=== PATIENT | female | born 1985 | race Caucasian/White ===

== ENCOUNTER 2017-01-26 08:02 | Emergency (ER) | payer MEDICAID, OTHER ==
[2017-01-26] MEDS ORDERED: OXYCODONE-ACETAMINOPHEN 5-325 MG TABLET PO ONE (09:40)
[2017-01-26] MEDS ORDERED: CEPHALEXIN 500 MG CAPSULE PO ONE (09:40)
[2017-01-26] MEDS ORDERED: SULFAMETHOXAZOLE/TRIMETHOPRIM 800-160 MG TABLET PO ONE (10:55)
--- NOTE | 2017-01-26 10:56 | ER Document Report ---
ED Skin Rash/Insect Bite/Abscs - General Chief Complaint: Abscess Stated Complaint: ARM PAIN Time Seen by Provider: 01/26/17 09:17 Notes: Patient reports a cyst under L arm x 4 days. Pain, swelling redness. History of MRSA. Last abx 2 months ago for same. denies past medical history otherwise TRAVEL OUTSIDE OF THE [place] IN LAST 30 DAYS: No - Related Data Allergies/Adverse Reactions: No Known Allergies Allergy (Verified 05/20/16 04:14) Past Medical History - Social History Smoking Status: Current Every Day Smoker Chew tobacco use (# tins/day): No Frequency of alcohol use: None Drug Abuse: None Family History: Other - denies family hx of breast cancer Patient has suicidal ideation: No Patient has homicidal ideation: No - Past Medical History Cardiac Medical History: Denies: Hx Heart Attack, Hx Hypertension Pulmonary Medical History: Denies: Hx Asthma, Hx Bronchitis, Hx COPD, Hx Pneumonia, Hx Tuberculosis Neurological Medical History: Denies: Hx Seizures Renal/ Medical History: Denies: Hx Peritoneal Dialysis Musculoskeltal Medical History: Denies Hx Arthritis Past Surgical History: Reports: Hx Appendectomy, Hx Herniorrhaphy - Ventral hernia repair., Hx Orthopedic Surgery - L acl w hardware, Hx Tonsillectomy, Hx Tubal Ligation - Immunizations Immunizations up to date: No Hx Diphtheria, Pertussis, Tetanus Vaccination: Yes Review of Systems - Review of Systems Constitutional: No symptoms reported EENT: No symptoms reported Cardiovascular: No symptoms reported Respiratory: No symptoms reported Gastrointestinal: No symptoms reported Skin: See HPI -: Yes All other systems reviewed and negative Physical Exam - Vital signs Vitals: Temp Pulse Resp BP Pulse Ox 97.6 F 82 16 113/78 98 01/26/17 08:06 01/26/17 08:06 01/26/17 08:06 01/26/17 08:06 01/26/17 08:06 - Notes Notes: PHYSICAL EXAM GENERAL: Alert, interacts well. EXTREMITIES: Moves all 4 extremities spontaneously. No edema, radial and dorsalis pedis pulses 2/4 bilaterally. No cyanosis. NEUROLOGICAL: Alert and oriented x4. Normal speech. PSYCH: Normal affect, normal mood. SKIN: Warm, dry, normal turgor. No rashes or lesions noted. - Skin Skin Temperature: Warm Skin Moisture: Dry Skin Color: Normal Skin Turgor: Elastic Skin irregularity: Abscess Location of irregularity: Extremities - left axilla Irregularity with: Swelling, Tenderness, Warmth, Induration Course - Re-evaluation Re-evalutation: 01/26/17 18:20 Patient is hemodynamically stable, no acute distress afebrile. I&D performed at the bedside for 5 cc of purulent material. Patient sent home on Bactrim to cover for MRSA. Discussed strict return precautions - Vital Signs Vital signs: Temp Pulse Resp BP Pulse Ox 98.3 F 66 20 134/88 H 99 01/26/17 11:17 01/26/17 11:17 01/26/17 11:17 01/26/17 11:17 01/26/17 11:17 Procedures - Incision and Drainage Left Arm Type: Simple Anesthetic type: 1% Lidocaine mL's of anesthetic: 3 Blade size: 11 I&D procedure: Betadine prep applied, Sterile dressing applied Incision Method: Incision made with needle Amount/type of drainage: 5 purulent material Adult Front & Back picture: 1 - abscess Discharge - Discharge Clinical Impression: Abscess Blepharitis Qualifiers: Blepharitis type: unspecified type Laterality: right Eyelid: upper Qualified Code(s): H01.001 - Unspecified blepharitis right upper eyelid Condition: Good Disposition: HOME, SELF-CARE Instructions: Abscess ([facility]), MRSA Cellulitis ([facility]), Post Incision and Drainage , Trimethoprim-Sulfa ([facility]), Oral Narcotic Medication ([facility]) Additional Instructions: Use warm compresses for your eye to decrease the swelling Prescriptions: Oxycodone HCl/Acetaminophen [Percocet 5-325 mg Tablet] 1 - 2 tab PO ASDIR PRN # 15 tablet PRN Reason: Sulfamethoxazole/Trimethoprim [Bactrim Ds Tablet] 1 each PO BID 10 Days Forms: Parent Work Note Referrals: LENARD STRONG PA-C [Primary Care Provider] - Follow up in 3-5 days
[2017-01-26 11:27] VITALS: BP 134/88
== END 2017-01-26 11:27 | disposition home or self-care (01) ==
LOC: ER 08:02
PROC: 0H9CXZZ Drainage of Left Upper Arm Skin, External Approach (ICD-10-PCS; principal; 2017-01-26)
DX: L02.412 Cutaneous abscess of left axilla (principal); H01.001 Unspecified blepharitis right upper eyelid; F17.200 Nicotine dependence, unspecified, uncomplicated; Z86.14 Personal history of Methicillin resistant Staphylococcus aureus infection
CPT/HCPCS: 99283; 87070; 87205; 87077; 87186; 10060; J3490

== ENCOUNTER 2017-03-15 15:50 | Emergency (ER) | payer MEDICAID ==
--- NOTE | 2017-03-15 17:30 | ER Document Report ---
HPI - HPI Patient complains to provider of: Right chin abscess Onset: Other - 2 Days Onset/Duration: Gradual Quality of pain: Throbbing Pain Level: 3 Context: 31-year-old female with a history of MRSA culture positive, has a new crusted abscess right chin. Her primary care provider recently had her treat her nose with Bactroban and she still got another one. no Fever. Associated Symptoms: None Exacerbated by: Other - Touching it Relieved by: Denies Similar symptoms previously: Yes Recently seen / treated by doctor: No - ROS ROS below otherwise negative: Yes Systems Reviewed and Negative: Yes All other systems reviewed and negative - REPRODUCTIVE Reproductive: DENIES: : - DERM Skin Color: Normal Past Medical History - General Information source: Patient - Social History Smoking Status: Current Every Day Smoker Frequency of alcohol use: None Drug Abuse: None Lives with: Family Family History: Other - denies family hx of breast cancer Patient has suicidal ideation: No Patient has homicidal ideation: No Renal/ Medical History: Denies: Hx Peritoneal Dialysis Past Surgical History: Reports: Hx Appendectomy, Hx Herniorrhaphy - Ventral hernia repair., Hx Orthopedic Surgery - L acl w hardware, Hx Tonsillectomy, Hx Tubal Ligation - Immunizations Immunizations up to date: No Hx Diphtheria, Pertussis, Tetanus Vaccination: Yes Vertical Provider Document - CONSTITUTIONAL Agree With Documented VS: Yes Exam Limitations: No Limitations General Appearance: No Apparent Distress - INFECTION CONTROL TRAVEL OUTSIDE OF THE [place] IN LAST 30 DAYS: No - HEENT HEENT: Normocephalic Notes: crusted abscess with surrounding swelling in the soft tissue right chin. No gingival swelling or dental decay. - NECK Neck: Supple. negative: Lymphadenopathy-Left, Lymphadenopathy-Right - RESPIRATORY O2 Sat by Pulse Oximetry: 100 - NEURO Level of Consciousness: Awake, Alert, Appropriate - DERM Integumentary: Warm, Dry, Abscess - See above Course - Vital Signs Vital signs: Temp Pulse Resp BP Pulse Ox 98.2 F 86 17 146/101 H 100 03/15/17 15:56 03/15/17 15:56 03/15/17 15:56 03/15/17 15:56 03/15/17 15:56 Procedures - Incision and Drainage Right Face Time completed: 18:45 Type: Simple Anesthetic type: 1% Lidocaine mL's of anesthetic: 1 Blade size: 11 I&D procedure: Betadine prep applied Incision Method: Incision made by scalpel - 2mm, Amount/type of drainage: large pus Notes: 03/15/17 22:46 NS irrigation, small piece of idoform gauze packing, bandaid Discharge - Discharge Clinical Impression: Elevated blood pressure reading, I & D right chin abscess Condition: Good Disposition: HOME, SELF-CARE Instructions: Abscess ([facility]), Clindamycin ([facility]), Post Incision and Drainage, High Blood Pressure ([facility]) Additional Instructions: warm compress to your provider for recheck to er if worse use the bactroban ointment on small lesions before they turn into abscess Please complete the patient satisfaction survey if you get one, and return it.. If you do not receive a survey, then you can go to the [facility] website, [email or web address] and place your comments about your very good care. Thank you very much. It was a pleasure being your medical provider today. Prescriptions: Ibuprofen [Motrin 600 mg Tablet] 600 mg PO Q8HP PRN #30 tablet PRN Reason: Clindamycin HCl [Cleocin 150 mg Capsule] 300 mg PO TID #42 capsule Referrals: LENARD STRONG PA-C [Primary Care Provider] - Follow up in 3-5 days (To recheck blood pressure)
[2017-03-15] MEDS ORDERED: CLINDAMYCIN HCL 150 MG CAPSULE PO ONE (17:48)
[2017-03-15] MEDS ORDERED: IBUPROFEN 800 MG TABLET PO ONE (17:49)
[2017-03-15] MEDS ORDERED: LIDOCAINE 4%/TETRACAINE 0.5%/EPI 0.18% 5 ML TOPICAL SOLN TOP ONE (17:50)
[2017-03-15 19:14] VITALS: BP 136/88
== END 2017-03-15 19:14 | disposition home or self-care (01) ==
LOC: ER 15:50
PROC: 0H91XZZ Drainage of Face Skin, External Approach (ICD-10-PCS; principal; 2017-03-15)
DX: L02.01 Cutaneous abscess of face (principal); Z86.14 Personal history of Methicillin resistant Staphylococcus aureus infection; R03.0 Elevated blood-pressure reading, without diagnosis of hypertension; F17.200 Nicotine dependence, unspecified, uncomplicated
CPT/HCPCS: 99283; 10060; J3490 ×3; A6266

== ENCOUNTER 2017-07-18 09:52 | Emergency (ER) | payer MEDICAID ==
--- NOTE | 2017-07-18 10:37 | ER Document Report ---
HPI - HPI Patient complains to provider of: right shoulder tender and sore Pain Level: 4 Context: Patient is a 31 year old female who presents to the emergency department complaining of right shoulder tenderness and swollen area for about 2 days. Patient states she has a history of abscesses and she thinks this is one. She denies any known scratches, bug bites. Otherwise denies any fevers or chills. States it is not started draining yet. Denies any allergies to medication Primary care is Bonnie strong - REPRODUCTIVE Reproductive: DENIES: : Past Medical History - Social History Smoking Status: Current Every Day Smoker Chew tobacco use (# tins/day): No Frequency of alcohol use: None Drug Abuse: None Family History: Other - denies family hx of breast cancer Patient has suicidal ideation: No Patient has homicidal ideation: No - Past Medical History Cardiac Medical History: Denies: Hx Heart Attack, Hx Hypertension Pulmonary Medical History: Denies: Hx Asthma, Hx Bronchitis, Hx COPD, Hx Pneumonia, Hx Tuberculosis Neurological Medical History: Denies: Hx Seizures Renal/ Medical History: Denies: Hx Peritoneal Dialysis Musculoskeltal Medical History: Denies Hx Arthritis Past Surgical History: Reports: Hx Appendectomy, Hx Herniorrhaphy - Ventral hernia repair., Hx Orthopedic Surgery - L acl w hardware, Hx Tonsillectomy, Hx Tubal Ligation - Immunizations Immunizations up to date: No Hx Diphtheria, Pertussis, Tetanus Vaccination: Yes Vertical Provider Document - CONSTITUTIONAL Notes: PHYSICAL EXAM GENERAL: Alert, interacts well. LUNGS: Clear to auscultation bilaterally, no wheezes, rales, or rhonchi. No respiratory distress. HEART: Regular rate and rhythm. No murmurs, gallops, or rubs. EXTREMITIES: Moves all 4 extremities spontaneously. No edema, radial and dorsalis pedis pulses 2/4 bilaterally. No cyanosis. NEUROLOGICAL: Alert and oriented x4. Normal speech. PSYCH: Normal affect, normal mood. SKIN: Warm, dry, normal turgor. Tender indurated area in the right shoulder blade with approximately 1 cm of fluctuance in 3 cm of surrounding erythema and induration. - INFECTION CONTROL TRAVEL OUTSIDE OF THE [place] IN LAST 30 DAYS: No - RESPIRATORY O2 Sat by Pulse Oximetry: 99 Course - Re-evaluation Re-evalutation: 07/18/17 11:17 Patient is 31-year-old female is hemodynamically stable, no acute distress afebrile. Presentation is consistent with an abscess. I&D performed at the bedside. Patient initiated on antibiotics and sent home with minimal pain control and can follow-up with primary care. Patient agrees with plan. - Vital Signs Vital signs: Temp Pulse Resp BP Pulse Ox 98.5 F 68 14 116/85 99 07/18/17 09:56 07/18/17 09:56 07/18/17 09:56 07/18/17 09:56 07/18/17 09:56 Procedures - Incision and Drainage Right Shoulder Type: Simple Anesthetic type: 1% Lidocaine mL's of anesthetic: 5 Blade size: 11 I&D procedure: Betadine prep applied Incision Method: Incision made by scalpel Amount/type of drainage: 3cc purulent material Discharge - Discharge Clinical Impression: Abscess Condition: Good Disposition: HOME, SELF-CARE Additional Instructions: ABSCESS: You have an abscess (boil). This a pus-forming infection, usually due to staph. Some boils may be left to drain on their own, but most require lancing. From the time the tender lump first appears, it may be three or four days before the abscess is ready to eliud. Local heat and rest help at this stage of treatment. An antibiotic may prevent spread of the infection. Once the abscess is opened, packing may be placed into it. This is done so pus is not sealed inside by premature closure of the cavity. The packing will be removed at your follow-up visit or you may be advised to remove it yourself at home. Sometimes this packing must be replaced a few times during healing. The wound will heal with surprisingly little scar. Depending on the size and location of an abscess, healing can take one to four weeks. You may shower and wash the area around the incision site two or three times a day. Antibiotics may be prescribed, but are usually not necessary after an abscess has been drained. If you develop fever, chills, worsening pain, or increasing swelling in the area, call the doctor or return immediately. POST INCISION AND DRAINAGE: You have had an incision made to allow drainage of an abscess. The incision must remain open so that pus and debris can drain from the wound. If the abscess cavity is large, packing is placed. This keeps the tissues from collapsing and trapping pus inside, while the body shrinks the cavity. The packing may need to be replaced every day or two. The physician will instruct you on the packing. Keep a bulky dressing over the area. Replace it if it becomes saturated with blood or pus. Do not disturb the packing (if present). You may shower and cleanse the area with gentle soap and warm water two or three times a day. Local warmth may be soothing, and may promote faster healing. Return if you develop high fever or chills, or if you note spreading redness, increasing swelling, or increasing tenderness. ORAL NARCOTIC MEDICATION: You have been given a prescription for pain control. This medication is a narcotic. It's best taken with food, as nausea can result if taken on an empty stomach. Don't operate machinery or drive within six hours of taking this medication. Do not combine this medicine with alcohol, or with any medication which can cause sedation (such as cold tablets or sleeping pills) unless you get permission from the physician. Narcotics tend to cause constipation. If possible, drink plenty of fluids and eat a diet high in fiber and fruits. CEPHALEXIN: The antibiotic you've been prescribed is a member of the cephalosporin class. This type of antibiotic covers a wide variety of infections, including those of the skin, lungs, and urinary tract. It's useful for staph infections. This antibiotic is slightly similar to the penicillin family. In rare cases , a person who is allergic to penicillin will also be allergic to this medication. If you have had a severe allergic reaction to penicillin, and have not taken this antibiotic since that time, notify your doctor. Antibiotics which cover many germs ("broad spectrum" antibiotics) are more likely to cause diarrhea or "yeast" infections. Women prone to vaginal yeast problems may suffer an attack after taking this antibiotic. In infants, oral thrush (white spots "stuck" on the cheek) or yeast diaper rash may result. See your doctor if these problems occur. Call at once if you develop itching, hives , shortness of breath, or lightheadedness. FOLLOW-UP CARE: Most simple abscesses will not require a follow up visit. If you had packing placed in the abscess, remove it as instructed by the physician. If you have been referred to a physician for follow-up care, call the physicians office for an appointment as you were instructed or within the next two days. If you experience worsening or a significant change in your symptoms, return to the Emergency Department at any time for re-evaluation. Prescriptions: Cephalexin Monohydrate [Keflex 500 mg Capsule] 500 mg PO Q6H 5 Days capsule Referrals: BONNIE STRONG PA-C [Primary Care Provider] - Follow up in 3-5 days
[2017-07-18] MEDS ORDERED: CEPHALEXIN 500 MG CAPSULE PO ONE (10:58)
[2017-07-18] MEDS ORDERED: IBUPROFEN 800 MG TABLET PO ONE (10:58)
[2017-07-18] MEDS ORDERED: HYDROCODONE/ACETAMINOPHEN 5-325 MG 6 TAB/DSPK PO PRN (11:18)
[2017-07-18 11:40] VITALS: BP 143/82
== END 2017-07-18 11:35 | disposition home or self-care (01) ==
LOC: ER 09:52
PROC: 0H9BXZZ Drainage of Right Upper Arm Skin, External Approach (ICD-10-PCS; principal; 2017-07-18)
DX: L02.413 Cutaneous abscess of right upper limb (principal); F17.200 Nicotine dependence, unspecified, uncomplicated; Z98.51 Tubal ligation status
CPT/HCPCS: 99283; 10060; J3490

== ENCOUNTER 2018-04-20 07:44 | Emergency (ER) | payer MEDICAID ==
[2018-04-20] MEDS ORDERED: LIDOCAINE 1% INJ-PF (10 MG/ML) 30 ML SDV INJ ONE (09:15)
--- NOTE | 2018-04-20 09:17 | ER Document Report ---
HPI - HPI Pain Level: 4 Notes: Patient is a 32-year-old female with no significant past medical history presents to the ED complaining of an abscess to her left axilla 1 week. Patient states that she has had abscesses before that needed incision and drainage performed. Patient states that she has not noticed any red streaks or discharge. She is eating and drinking without difficulties. Denies any drug allergies. + history for MRSA. Denies any headache, fever, URI, sore throat, chest pain, palpitations, syncope, cough, shortness of breath, wheeze, dyspnea, abdominal pain, nausea/vomiting/diarrhea, urinary retention, dysuria, hematuria. - ROS Systems Reviewed and Negative: Yes All other systems reviewed and negative - REPRODUCTIVE Reproductive: DENIES: : Past Medical History - Social History Smoking Status: Current Some Day Smoker Chew tobacco use (# tins/day): No Frequency of alcohol use: None Drug Abuse: None Family History: Other - denies family hx of breast cancer Patient has suicidal ideation: No Patient has homicidal ideation: No - Past Medical History Cardiac Medical History: Denies: Hx Heart Attack, Hx Hypertension Pulmonary Medical History: Denies: Hx Asthma, Hx Bronchitis, Hx COPD, Hx Pneumonia, Hx Tuberculosis Neurological Medical History: Denies: Hx Seizures Renal/ Medical History: Denies: Hx Peritoneal Dialysis Musculoskeletal Medical History: Denies Hx Arthritis Past Surgical History: Reports: Hx Appendectomy, Hx Herniorrhaphy - Ventral hernia repair., Hx Orthopedic Surgery - L acl w hardware, Hx Tonsillectomy, Hx Tubal Ligation - Immunizations Immunizations up to date: No Hx Diphtheria, Pertussis, Tetanus Vaccination: Yes Vertical Provider Document - CONSTITUTIONAL Agree With Documented VS: Yes Notes: PHYSICAL EXAMINATION: GENERAL: Well-appearing, well-nourished and in no acute distress. LUNGS: Breath sounds clear to auscultation bilaterally and equal. No wheezes rales or rhonchi. HEART: Regular rate and rhythm without murmurs, rubs, gallops. Musculoskeletal: FROM to passive/active. Strength 5+/5. Extremities: No cyanosis, clubbing, or edema b/l. Peripheral pulses 2+. Capillary refill less than 3 seconds. NEUROLOGICAL: Normal speech, normal gait. PSYCH: Normal mood, normal affect. SKIN: there is a 2cmx1.5cm erythemic area with fluctuance and tenderness to the left axilla. No streaks or discharge. - INFECTION CONTROL TRAVEL OUTSIDE OF THE [place] IN LAST 30 DAYS: No Course - Re-evaluation Re-evalutation: 04/20/18 10:24 Patient is an afebrile, well-hydrated, 32-year-old female who presents to the ED with an abscess requiring I&D to the left axilla which I suspect to be MRSA based on her history. Vitals are acceptable without any significant tachycardia , tachypnea, or hypoxia. PE is otherwise unremarkable. I&D was performed successfully without any complications and wound culture was obtained. Packing was placed. No other labs or imaging warranted at this time based on H&P. Patient is nontoxic-appearing and is tolerating p.o. without difficulties. Based on her culture history and sensitivity history, I will send her home with a prescription for clindamycin. Conservative measures for symptoms. Wound dressing was placed and wound instructions reviewed. Recheck with your PCM in 2 -3 days and/or the ED if necessary. Return to the ED with any worsening/ concerning symptoms otherwise as reviewed in discharge. Patient is in agreement. - Vital Signs Vital signs: Temp Pulse Resp BP Pulse Ox 98.0 F 75 20 136/89 H 100 04/20/18 07:49 04/20/18 07:49 04/20/18 07:49 04/20/18 07:49 04/20/18 07:49 Procedures - Incision and Drainage Left Arm Time completed: 10:15 - Patient tolerated procedure well without any complications. Wound culture was obtained. Type: Simple Anesthetic type: 1% Lidocaine mL's of anesthetic: 5 Blade size: 11 I&D procedure: Iodoform packing placed, Sterile dressing applied, Other - chlorhexadine/saline Incision Method: Incision made by scalpel Amount/type of drainage: moderate purulent Discharge - Discharge Clinical Impression: Abscess Condition: Stable Disposition: HOME, SELF-CARE Instructions: Abscess ([facility]), Clindamycin ([facility]), Post Incision and Drainage Additional Instructions: Do not shower or bathe for 24 hours. After 24 hours she may shower but no submersion of the wound under water. Keep the original dressing on the wound for 24 hours unless the drainage soaks through. Change the dressing daily thereafter and use a small amount of triple antibiotic ointment over the open wound. See your PCM in 2-3 days for recheck and continue direction for wound packing. Monitor for any signs of worsening pain or redness, streaks, and/or fever. Return to the ED if noticing any of the above symptoms or as needed. Take medications as directed. Prescriptions: Clindamycin HCl [Cleocin 300 mg Capsule] 300 mg PO TID #30 capsule Forms: Elevated Blood Pressure Referrals: LENARD STRONG PA-C [Primary Care Provider] - 04/22/18
[2018-04-20] MEDS ORDERED: HYDROCODONE/ACETAMINOPHEN 5-325 MG (6 TAB/ER DISP) PO PRN (09:47)
[2018-04-20] MEDS ORDERED: LIDOCAINE 1% INJ-PF (10 MG/ML) 30 ML SDV ONE (10:05)
[2018-04-20] MEDS ORDERED: HYDROCODONE/ACETAMINOPHEN 5-325 MG (6 TAB/ER DISP) ONE (10:44)
[2018-04-20 10:58] VITALS: BP 138/78
== END 2018-04-20 10:56 | disposition home or self-care (01) ==
LOC: ER 07:44
DX: L02.412 Cutaneous abscess of left axilla (principal); F17.200 Nicotine dependence, unspecified, uncomplicated; Z86.14 Personal history of Methicillin resistant Staphylococcus aureus infection
CPT/HCPCS: 87070; 87077; 87186; 87205; 99283

== ENCOUNTER 2018-06-06 16:14 | Emergency (ER) | payer MEDICAID ==
[2018-06-06 16:23] VITALS: BP 124/73
[2018-06-06] MEDS ORDERED: LIDOCAINE 1%/EPINEPHRINE INJ 20 ML VIAL INJ ONE (16:44)
[2018-06-06] MEDS ORDERED: DIPH/PERTUSS(ACELL)/TETANUS VAC/PF 0.5 ML SYR (>=10YO) IM ONE (16:48)
[2018-06-06] MEDS ORDERED: OXYCODONE-ACETAMINOPHEN 5-325 MG TABLET PO ONE (16:48)
[2018-06-06] MEDS ORDERED: ACETAMINOPHEN 325 MG TABLET PO ONE (16:48)
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
== END 2018-06-06 18:14 | disposition home or self-care (01) ==
LOC: ER 16:14
DX: S41.112A Laceration without foreign body of left upper arm, initial encounter (principal); S71.012A Laceration without foreign body, left hip, initial encounter; X99.1XXA Assault by knife, initial encounter; F17.200 Nicotine dependence, unspecified, uncomplicated
CPT/HCPCS: 99284; 90471; 90715; 12002; J3490 ×2

== ENCOUNTER 2019-03-23 06:58 | Emergency (ER) | payer MEDICAID ==
[2019-03-23 07:06] VITALS: BP 123/66
--- NOTE | 2019-03-23 08:13 | ER Document Report ---
HPI - HPI Time Seen by Provider: 03/23/19 08:04 Pain Level: 1 Notes: Patient is a 33-year-old female no significant past medical history who presents complaining of a rash to her right hand and left upper arm area that began at the same time yesterday. Patient states that a couple days ago she was pulling plants and is not sure if she came in a contact with poison thomas or oak. Patient states that the rash has developed some bumps and is very pruritic. She is able to eat and drink without difficulty. She is urinating normally. Denies drug allergies. Denies IV drug abuse. Denies any headache, fever, URI, sore throat, chest pain, palpitations, syncope, cough, shortness of breath, wheeze, dyspnea, abdominal pain, nausea/vomiting/diarrhea, urinary retention, dysuria, hematuria, loss of control of bowel or bladder, numbness/tingling, muscle paralysis/weakne ss. - ROS Systems Reviewed and Negative: Yes All other systems reviewed and negative - REPRODUCTIVE Reproductive: DENIES: : Past Medical History - Social History Smoking Status: Current Every Day Smoker Family History: Other - denies family hx of breast cancer Patient has suicidal ideation: No Patient has homicidal ideation: No - Past Medical History Cardiac Medical History: Denies: Hx Heart Attack, Hx Hypertension Pulmonary Medical History: Denies: Hx Asthma, Hx Bronchitis, Hx COPD, Hx Pneumonia, Hx Tuberculosis Neurological Medical History: Denies: Hx Seizures Renal/ Medical History: Denies: Hx Peritoneal Dialysis Musculoskeletal Medical History: Denies Hx Arthritis Psychiatric Medical History: Reports: Hx Anxiety, Hx Depression Past Surgical History: Reports: Hx Appendectomy, Hx Herniorrhaphy - Ventral hernia repair., Hx Orthopedic Surgery - L acl w hardware, Hx Tonsillectomy, Hx Tubal Ligation - Immunizations Immunizations up to date: No Hx Diphtheria, Pertussis, Tetanus Vaccination: Yes Vertical Provider Document - CONSTITUTIONAL Agree With Documented VS: Yes Notes: PHYSICAL EXAMINATION: GENERAL: Well-appearing, well-nourished and in no acute distress. HEAD: Atraumatic, normocephalic. EYES: Pupils equal round and reactive to light, extraocular movements intact, sclera anicteric, conjunctiva are normal. ENT: EAC clear b/l. TM's intact b/l without erythema, fluid, or perforation. Nares patent and without discharge. oropharynx clear without exudates. No tonsilar hypertrophy or erythema. Moist mucous membranes. No sinus tenderness. NECK: Normal range of motion, supple without lymphadenopathy LUNGS: Breath sounds clear to auscultation bilaterally and equal. No wheezes rales or rhonchi. HEART: Regular rate and rhythm without murmurs, rubs, gallops. ABDOMEN: Soft, nontender, nondistended abdomen. No guarding, no rebound. No masses appreciated. Normal bowel sounds present. No CVA tenderness bilaterally. Musculoskeletal: FROM to passive/active. Strength 5+/5. Extremities: No cyanosis, clubbing, or edema b/l. Peripheral pulses 2+. Capillary refill less than 3 seconds. NEUROLOGICAL: Cranial nerves grossly intact. Normal speech, normal gait. Normal sensory, motor exams PSYCH: Normal mood, normal affect. SKIN: rt hand/fingers and left deltoid: there are multiple maculopapular areas noted and some with minimal vesiculations. Non-tender. No streaks, fluctuance, or induration. - INFECTION CONTROL TRAVEL OUTSIDE OF THE [place] IN LAST 30 DAYS: No Course - Re-evaluation Re-evalutation: 03/23/19 08:14 Patient is an afebrile, well-hydrated, 33-year-old female who presents with rash and suspect to be contact dermatitis plan. Vitals are acceptable without significant tachycardia, tachypnea, or hypoxia. PE is otherwise unremarkable. There is no evidence of abscess or superimposed bacterial infection. Patient is nontoxic-appearing and is tolerating p.o. without difficulty. No work-up warranted at this time. Low suspicion for any necrotizing fasciitis, SJS, SSS, drug reaction, sepsis, meningitis, syphilis, Lyme disease, [place] spotted fever, or other systemic emergent condition at this time. Patient aware that condition can change from initial presentation and she needs to monitor symptoms closely and seek medical attention with any acute changes. Rx for clobetasol. Recheck with your PCM in 2 to 3 days. Consider consult with dermatology. Return to the ED with any other worsening/concerning symptoms as reviewed. Patient is in agreement. - Vital Signs Vital signs: Temp Pulse Resp BP Pulse Ox 97.6 F 59 L 123/66 98 03/23/19 07:04 03/23/19 07:04 03/23/19 07:04 03/23/19 07:04 Discharge - Discharge Clinical Impression: Rash and nonspecific skin eruption, Contact dermatitis due to plant Condition: Stable Disposition: HOME, SELF-CARE Instructions: Contact Dermatitis ([facility]) Additional Instructions: Keep the skin clean Wash with soap and water Tylenol/ibuprofen if needed Triple antibiotic ointment daily for any break in the skin Take medication as directed Monitor for any worsening symptoms Recheck with your PCM in 3-5 days Consider consult with dermatology for ongoing/worsening symptoms Return to the ED with any worsening symptoms and/or development of fever, headache, chest pain, palpitations, syncope, shortness of breath, trouble breathing, abdominal pain, n/v/d, abscess, purulent discharge, red streaks, worsening swelling, or other worsening symptoms that are concerning to you. Prescriptions: Clobetasol Propionate/Emoll [Clobetasol Emollient 0.05% Crm] 1 applic TP BID #1 cream.gm. Referrals: BREANNA ARIAS DO [ACTIVE STAFF] - Follow up as needed
== END 2019-03-23 08:25 | disposition home or self-care (01) ==
LOC: ER 06:58
DX: L50.9 Urticaria, unspecified (principal); R21 Rash and other nonspecific skin eruption; F17.200 Nicotine dependence, unspecified, uncomplicated
CPT/HCPCS: 99282

== ENCOUNTER 2019-03-26 07:09 | Emergency (ER) | payer MEDICAID ==
[2019-03-26 07:15] VITALS: BP 120/73
--- NOTE | 2019-03-26 07:31 | ER Document Report ---
ED General - General Chief Complaint: Rash Stated Complaint: RASH Time Seen by Provider: 03/26/19 07:25 Primary Care Provider: NATHALIE GUAJARDO DO [Primary Care Provider] - Follow up as needed Notes: 33-year-old female resents with itchy rash consisting of discrete red bumps from the right hand the left arm, which began 2 days ago and is now spreading to her back and flank. It is itchy. No new soaps or detergents. Read as washed all her close. Is doing [id number] [place] cortisone cream. No of anaphylaxis. TRAVEL OUTSIDE OF THE [place] IN LAST 30 DAYS: No - Related Data Allergies/Adverse Reactions: No Known Allergies Allergy (Verified 03/26/19 07:11) Past Medical History - Social History Smoking Status: Never Smoker Family History: Other - denies family hx of breast cancer - Past Medical History Cardiac Medical History: Denies: Hx Heart Attack, Hx Hypertension Pulmonary Medical History: Denies: Hx Asthma, Hx Bronchitis, Hx COPD, Hx Pneumonia, Hx Tuberculosis Neurological Medical History: Denies: Hx Seizures Renal/ Medical History: Denies: Hx Peritoneal Dialysis Musculoskeletal Medical History: Denies Hx Arthritis Psychiatric Medical History: Reports: Hx Anxiety, Hx Depression Past Surgical History: Reports: Hx Appendectomy, Hx Herniorrhaphy - Ventral hernia repair., Hx Orthopedic Surgery - L acl w hardware, Hx Tonsillectomy, Hx Tubal Ligation - Immunizations Immunizations up to date: No Hx Diphtheria, Pertussis, Tetanus Vaccination: Yes Physical Exam - Vital signs Vitals: Pulse Resp BP Pulse Ox 67 16 120/73 100 03/26/19 07:14 03/26/19 07:14 03/26/19 07:14 03/26/19 07:14 Course - Re-evaluation Re-evalutation: 03/26/19 13:51 Paretic rash contact versus bug bitesoffered prednisone given that she still symptomatic on topical meds, and she said she wants to wait and see but get the prescription. She has no signs of anaphylaxis and is safe for discharge home. I have discussed with the patient there likely diagnosis, aftercare plan, follow-up plans and my usual and customary return precautions. They verbalized understanding of this. - Vital Signs Vital signs: Temp Pulse Resp BP Pulse Ox 67 16 120/73 100 03/26/19 07:14 03/26/19 07:14 03/26/19 07:14 03/26/19 07:14 Discharge - Discharge Clinical Impression: Pruritic rash Condition: Good Disposition: HOME, SELF-CARE Instructions: Contact Dermatitis ([facility]) Prescriptions: RX: Prednisone [Deltasone 10 mg Tablet] 40 mg PO DAILY #20 tablet Forms: Return to Work Referrals: NATHALIE GUAJARDO DO [Primary Care Provider] - Follow up as needed
== END 2019-03-26 07:40 | disposition home or self-care (01) ==
LOC: ER 07:09
DX: R21 Rash and other nonspecific skin eruption (principal); L29.8 Other pruritus
CPT/HCPCS: 99282

== ENCOUNTER 2019-04-01 19:33 | Emergency (ER) | payer MEDICAID | END 2019-04-01 19:45 | disposition left against medical advice (07) | LOC: ER 19:33 | DX: Z53.21 Procedure and treatment not carried out due to patient leaving prior to being seen by health care provider (principal) ==

== ENCOUNTER 2020-03-30 17:20 | Emergency (ER) | payer MEDICAID ==
[2020-03-30 18:13] LABS: ABSOLUTE BASOPHILS # (AUTO) 0.1 10^3/uL (0.0-0.2); ABSOLUTE EOSINOPHILS # (AUTO) 0.3 10^3/uL (0.0-0.6); ABSOLUTE MONOCYTES (AUTO) 0.8 10^3/uL (0.1-1.4); ABSOLUTE NEUT (AUTO) 13.1 10^3/uL (1.7-8.2); BASOPHILS % (AUTO) 0.5 % (0-2); EOSINOPHILS % (AUTO) 2.1 % (0-6); HEMATOCRIT 37.6 % (36.0-47.0); HEMOGLOBIN 12.2 g/dL (12.0-15.5); LYMPHOCYTES % (AUTO) 6.5 % (13-45); MEAN CORPUSCULAR HEMOGLOBIN 29.7 pg (27.0-33.4); MEAN CORPUSCULAR HGB CONC 32.5 g/dL (32.0-36.0); MEAN CORPUSCULAR VOLUME 91 fl (80-97); MONOCYTES % (AUTO) 5.1 % (3-13); PLATELET COUNT 231 10^3/uL (150-450); RED BLOOD COUNT 4.12 10^6/uL (3.72-5.28); RED CELL DISTRIBUTION WIDTH 15.1 % (11.5-14.0); SEGMENTED NEUTROPHILS % (AUTO) 85.8 % (42-78); TOTAL CELLS COUNTED % (AUTO) 100 %; WHITE BLOOD COUNT 15.2 10^3/uL (4.0-10.5)
[2020-03-30 18:27] LABS: ALKALINE PHOSPHATASE 55 U/L (38-126); ASPARTATE AMINO TRANSFERASE 26 U/L (14-36); BILIRUBIN,TOTAL 0.4 mg/dL (0.2-1.3); BLOOD UREA NITROGEN 13 mg/dL (7-20); CALCIUM 8.9 mg/dL (8.4-10.2); GLUCOSE 108 mg/dL (75-110); POTASSIUM 4.2 mmol/L (3.6-5.0); SALICYLATE 1.4 mg/dL (2.0-20.0); TOTAL PROTEIN 6.8 g/dL (6.3-8.2)
[2020-03-30 18:32] LABS: CARBON DIOXIDE 30 mmol/L (22-30); CHLORIDE 104 mmol/L (98-107)
[2020-03-30 18:35] LABS: ACETAMINOPHEN < 10 ug/mL (10-30); ALCOHOL < 10 mg/dL (NONE DETECTED); ANION GAP 3 (5-19)
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
[2020-03-30 19:57] LABS: APPEARANCE,URINE SLIGHTLY-CLOUDY; BILIRUBIN,URINE NEGATIVE (NEGATIVE); COLOR,URINE YELLOW; GLUCOSE, URINE NEGATIVE (NEGATIVE); KETONES,URINE NEGATIVE (NEGATIVE); PROTEIN,URINE 30 mg/dL (NEGATIVE); URINE SPECIFIC GRAVITY 1.012; UROBILINOGEN,URINE NEGATIVE mg/dL (<2.0)
[2020-03-30 20:19] LABS: URINE AMPHETAMINES SCREEN NEGATIVE; URINE BARBITURATES SCREEN NEGATIVE; URINE METHADONE SCREEN NEGATIVE; URINE PHENCYCLIDINE SCREEN NEGATIVE
[2020-03-30 20:20] LABS: URINE BENZODIAZEPINES SCREEN UNCONFIRMED POSITIVE; URINE COCAINE SCREEN UNCONFIRMED POSITIVE; URINE MARIJUANA (THC) SCREEN UNCONFIRMED POSITIVE
[2020-03-30 21:09] VITALS: BP 110/72
== END 2020-03-30 21:16 | disposition home or self-care (01) ==
LOC: ER 17:20
DX: F19.10 Other psychoactive substance abuse, uncomplicated (principal); T50.901A Poisoning by unspecified drugs, medicaments and biological substances, accidental (unintentional), initial encounter; R09.89 Other specified symptoms and signs involving the circulatory and respiratory systems; F17.200 Nicotine dependence, unspecified, uncomplicated
CPT/HCPCS: 36415; 80053; 80307; 81001; 85025; 87086; 87088; 87186; 99284